=== PATIENT | male | born 1990 | race Caucasian/White ===

== ENCOUNTER 2024-04-11 20:28 | Emergency (ER) | payer OTHER ==
[~2024-04-11] VITALS: Ht 188 cm; Wt 110.1 kg
[2024-04-11 23:57] LABS: BASO # 0.1 10^3/uL (0.0-0.2); BASO % 0.9 % (0.0-1.0); EOS # 0.1 10^3/uL (0.0-0.5); EOS % 1.8 % (0.0-3.0); HEMATOCRIT 42.3 % (42.0-52.0); HEMOGLOBIN 14.3 g/dl (13.5-17.5); LYMPH % 35.3 % (24.0-44.0); MEAN CORPUSCULAR HEMOGLOBIN 30.1 pg (27.0-33.0); MEAN CORPUSCULAR HGB CONC 33.8 g/dl (32.0-36.5); MEAN CORPUSCULAR VOLUME 89.1 fl (80.0-96.0); MONO # 0.5 10^3/uL (0.0-0.8); MONO % 8.4 % (2.0-8.0); NEUTROPHILS % 53.4 % (36.0-66.0); PLATELET COUNT, AUTOMATED 226 10^3/uL (150-450); RED BLOOD COUNT 4.75 10^6/uL (4.30-6.10); WHITE BLOOD COUNT 5.6 10^3/uL (4.0-10.0)
[2024-04-12] MEDS: NS 1,000 ML IV ONE
[2024-04-12 00:03] LABS: ALKALINE PHOSPHATASE 59 U/L (46-116); ALT/SGPT 24 U/L (7.0-40); AST/SGOT 14 U/L (<34); BILIRUBIN,TOTAL 0.4 MG/DL (0.3-1.2); BLOOD UREA NITROGEN 19 MG/DL (9-23); CALCIUM LEVEL 8.9 MG/DL (8.5-10.1); CARBON DIOXIDE LEVEL 28 MMOL/L (20-31); CHLORIDE LEVEL 110 MMOL/L (98-107); CREATININE FOR GFR 1.11 MG/DL (0.70-1.30); GLOMERULAR FILTRATION RATE > 60.0 (>60); GLUCOSE, FASTING 82 MG/DL (60-100); SODIUM LEVEL 140 MMOL/L (136-145); TOTAL PROTEIN 6.7 G/DL (5.7-8.2)
[2024-04-12 00:15] VITALS: TEMP 97.8
[2024-04-12] MEDS: ACETAMINOPHEN 500 MG TAB PO ONE (00:31)
[2024-04-12] MEDS: KETOROLAC 30 MG/ML 1ML VIAL IM ONE (00:32)
[2024-04-12] MEDS: METOCLOPRAMIDE INJ 10MG/2ML VIAL IV ONE (00:32)
[2024-04-12 02:00] VITALS: BP 137/83; O2SAT 97
[2024-04-12] MEDS ORDERED: FIOR1CAP PO (02:15)
== END 2024-04-12 02:25 | disposition home or self-care (01) ==
LOC: M ED 20:28
DX: G43.909 Migraine, unspecified, not intractable, without status migrainosus (principal); Z79.1 Long term (current) use of non-steroidal anti-inflammatories (NSAID)
CPT/HCPCS: 70450; 80053; 85025; 87486; 87581; 87633; 87798; 96361; 96372; 96374; 99284; J1100; J1885; J2765

== ENCOUNTER → 2024-12-19 | Outpatient (CLI) | payer OTHER ==
[~2024-12-19] MED LIST: FIOR1CAP PO
== END ==
LOC: M RAD 12-07 09:47
PROVIDERS: ATTEND Nurse Practitioner Adult Health
DX: Z65.5 Exposure to disaster, war and other hostilities (principal); R06.02 Shortness of breath; R05.9 Cough, unspecified

== ENCOUNTER → 2024-12-21 | Outpatient (CLI) | payer OTHER ==
[~2024-12-21] MED LIST changes: +METHACHOLINE KIT (6 VIAL.NEB PREMIX) INH ONE
== END ==
LOC: M CARPUL 14:35
PROVIDERS: ATTEND Nurse Practitioner Adult Health
DX: R06.02 Shortness of breath (principal)
CPT/HCPCS: 94070; 95070; J7674

== ENCOUNTER → 2024-12-30 | Outpatient (REF) | payer OTHER ==
[~2024-12-30] MED LIST changes: -METHACHOLINE KIT (6 VIAL.NEB PREMIX) INH ONE
== END ==
LOC: M WUC 17:26
PROVIDERS: ATTEND Student in an Organized Health Care Education/Training Program
DX: J06.9 Acute upper respiratory infection, unspecified (principal)

== ENCOUNTER 2025-04-05 13:55 | Emergency (ER) | payer OTHER ==
[~2025-04-05] VITALS: Ht 190.5 cm; Wt 117.4 kg
[2025-04-05] MEDS ORDERED: ALBU8.5H (14:06)
[2025-04-05] MEDS ORDERED: ROSU20TA86 (14:06)
[2025-04-05] MEDS ORDERED: VALA1TAB5 (14:06)
[2025-04-05] MEDS ORDERED: PRAZ1CAP (14:06)
[2025-04-05 18:21] VITALS: BP 132/79; TEMP 97.8; O2SAT 99
[2025-04-05] MEDS ORDERED: ONDA-282 PO (18:39)
[2025-04-05] MEDS ORDERED: TIZA4CAP PO (18:39)
[2025-04-05] MEDS: KETOROLAC 30 MG/ML 1 ML VIAL IM ONE (18:49)
== END 2025-04-05 18:58 | disposition home or self-care (01) ==
LOC: M ED 13:55
DX: S06.0X0A Concussion without loss of consciousness, initial encounter (principal); S16.1XXA Strain of muscle, fascia and tendon at neck level, initial encounter; Y92.9 Unspecified place or not applicable; Y93.9 Activity, unspecified; Y99.9 Unspecified external cause status; W01.198A Fall on same level from slipping, tripping and stumbling with subsequent striking against other object, initial encounter; K21.9 Gastro-esophageal reflux disease without esophagitis; Z79.51 Long term (current) use of inhaled steroids; Z79.899 Other long term (current) drug therapy
CPT/HCPCS: 70450; 72125; 96372; 99283; J1885